=== PATIENT | female | born 1960 | race Two or more races ===

== ENCOUNTER 2017-01-23 15:38 | Emergency (ER) | payer MEDICAID ==
[~2017-01-23] VITALS: Ht 152.4 cm; Wt 72.6 kg
[2017-01-23 15:48] VITALS: BP 145/71
== END 2017-01-23 16:06 | disposition home or self-care (01) ==
LOC: ER 15:40
DX: J04.0 Acute laryngitis (principal); I10 Essential (primary) hypertension
CPT/HCPCS: 99283; A4606; Z7610

== ENCOUNTER 2020-09-15 16:35 | Emergency (ER) | payer MEDICAID ==
[~2020-09-15] VITALS: Ht 152.4 cm; Wt 81.6 kg
--- NOTE | 2020-09-15 16:41 | NUR ---
pt self presents to ed c/o pelvic pain, dysuria for the past 2 weeks now. pt sts took antibiotics and finished 3 days ago but w/ no relief. stable vitals. nad noted. awaiting md barrow.
--- NOTE | 2020-09-15 16:50 | NUR ---
[facility] np at bedside for eval.
--- NOTE | 2020-09-15 17:25 | NUR ---
laboratory assistant at bedside for blood draw.
[2020-09-15 17:37] LABS: BASOPHILS % (AUTO) 0.4 % (0.0-2.0); HEMATOCRIT 40 % (33-45); LYMPHOCYTES # (AUTO) 2.6 /CMM (0.8-4.8); LYMPHOCYTES % (AUTO) 28.2 % (20.0-44.0); MEAN CORPUSCULAR HGB CONC 32 g/dl (31.0-36.0); MEAN CORPUSCULAR VOLUME 85 fL (82-100); MONOCYTES # (AUTO) 0.5 /CMM (0.1-1.30); MONOCYTES % (AUTO) 5.8 % (2.0-12.0); NEUTROPHILS # (AUTO) 5.8 /CMM (1.8-8.9); NEUTROPHILS % (AUTO) 63.6 % (43.0-81.0); PLATELET COUNT (AUTO) 260 /CMM (150-450); RED BLOOD CELL COUNT(AUTO) 4.74 MIL/uL (4.0-5.2); WHITE BLOOD COUNT (AUTO) 9.1 K/uL (4.3-11.0)
[2020-09-15 17:56] LABS: ALBUMIN 3.5 g/dL (3.4-5.0); BILIRUBIN,TOTAL 0.1 mg/dL (0.2-1.0); CALCIUM, SERUM 8.7 mg/dL (8.5-10.1); CREATININE 0.7 mg/dL (0.6-1.3); POTASSIUM 3.8 mmol/L (3.5-5.1); TOTAL PROTEIN, SERUM 7.9 g/dL (6.4-8.2)
--- NOTE | 2020-09-15 18:00 | NUR ---
Patient discharged to home in stable condition. Written and verbal after care instructions given. Patient verbalizes understanding of instruction.
[2020-09-15 18:35] LABS: APPEARANCE,URINE CLEAR (CLEAR); BILIRUBIN,URINE NEGATIVE (NEGATIVE); BLOOD, URINE NEGATIVE Ery/uL (NEGATIVE); COLOR,URINE YELLOW (YELLOW); KETONES,URINE NEGATIVE (NEGATIVE); LEUKOCYTE ESTERASE ,URINE NEGATIVE (NEGATIVE); NITRITE, URINE NEGATIVE (NEGATIVE); PH,URINE 5.5 (5.0-8.0); PROTEIN,URINE NEGATIVE (NEGATIVE); UGLUCOSE NEGATIVE (NEGATIVE); UROBILINOGEN,URINE 0.2 EU/dL (0.2)
[2020-09-15 19:08] VITALS: BP 136/77
== END 2020-09-15 18:00 | disposition home or self-care (01) ==
LOC: ER 16:44
DX: N76.0 Acute vaginitis (principal); I10 Essential (primary) hypertension
CPT/HCPCS: 36415; 76856-TC; 80053-TC; 81000-TC; 85025-TC; 87086-TC